=== PATIENT | female | born 1945 ===

== ENCOUNTER → 2019-04-12 | Outpatient (CLI) | payer OTHER ==
[~2019-04-12] MED LIST: AUGMENTIN1 TAB.SR2 PO; AVAPRO75 MG PO; CRESTOR5 MG PO; XOPENEX1.25 MG/0. IH
== END | disposition home or self-care (01) ==
LOC: NUCLEAR 09:00
DX: I11.9 Hypertensive heart disease without heart failure (principal)

== ENCOUNTER 2021-07-18 16:18 | Inpatient (IN) | payer OTHER ==
[~2021-07-18] VITALS: Ht 152.4 cm; Wt 65.8 kg
[2021-07-18] MEDS ORDERED: SYNTHROID100 MCG (17:15)
[2021-07-18] MEDS ORDERED: PROTONIX (17:16)
[2021-07-18] MEDS ORDERED: [UNRECOGNIZED DRUG - OTHER] (17:17)
[2021-07-22] MEDS ORDERED: DSS100 MG (08:13)
[2021-07-22] MEDS ORDERED: ROSUVASTATIN CA10 MG (08:13)
[2021-07-22] MEDS ORDERED: IRBESARTAN150 MG (08:13)
[2021-07-22] MEDS ORDERED: PANTOPRAZOLE SO40 MG (08:13)
[2021-07-30] MEDS ORDERED: SYNTHROID100 MCG PO (12:58)
[2021-07-30] MEDS ORDERED: Neurin-Sl Tablet Sl SL (12:58)
[2021-07-30] MEDS ORDERED: PANTOPRAZOLE SO40 MG PO (12:58)
[2021-07-30] MEDS ORDERED: POM (MEDICAMENTO EN PO (12:58)
== END 2021-07-30 20:05 | disposition home health service (06) | DRG 815 ==
LOC: ER 16:18 → MEDJ 07-19 12:24 → SURH 07-26 15:50
PROVIDERS: ADMIT Internal Medicine; ATTEND Internal Medicine
PROC: 4A12X4Z Monitoring of Cardiac Electrical Activity, External Approach (ICD-10-PCS; 2021-07-19)
PROC: 02H633Z Insertion of Infusion Device into Right Atrium, Percutaneous Approach (ICD-10-PCS; 2021-07-20)
PROC: 30233N1 Transfusion of Nonautologous Red Blood Cells into Peripheral Vein, Percutaneous Approach (ICD-10-PCS; principal; 2021-07-23)
DX: D75.838 Other thrombocytosis (principal); J98.11 Atelectasis; N39.0 Urinary tract infection, site not specified; L27.0 Generalized skin eruption due to drugs and medicaments taken internally; D50.8 Other iron deficiency anemias

== ENCOUNTER 2021-10-22 10:08 | Outpatient (CLI) | payer OTHER ==
[~2021-10-22 10:08] MED LIST changes: +DSS100 MG; +IRBESARTAN150 MG; +Neurin-Sl Tablet Sl SL; +PANTOPRAZOLE SO40 MG; +PANTOPRAZOLE SO40 MG PO; +POM (MEDICAMENTO EN PO; +PROTONIX; +ROSUVASTATIN CA10 MG; +SYNTHROID100 MCG; +SYNTHROID100 MCG PO; +[UNRECOGNIZED DRUG - OTHER]
== END 2021-10-22 10:16 | disposition home or self-care (01) ==
LOC: LAB 10:08
PROVIDERS: ATTEND Internal Medicine Hematology & Oncology
DX: D50.8 Other iron deficiency anemias (principal); R79.89 Other specified abnormal findings of blood chemistry; I10 Essential (primary) hypertension; R74.02 Elevation of levels of lactic acid dehydrogenase [LDH]; K76.89 Other specified diseases of liver; R70.0 Elevated erythrocyte sedimentation rate; D51.1 Vitamin B12 deficiency anemia due to selective vitamin B12 malabsorption with proteinuria; D51.0 Vitamin B12 deficiency anemia due to intrinsic factor deficiency; E03.8 Other specified hypothyroidism; E06.3 Autoimmune thyroiditis; R97.0 Elevated carcinoembryonic antigen [CEA]; R97.8 Other abnormal tumor markers; D47.3 Essential (hemorrhagic) thrombocythemia

== ENCOUNTER 2022-03-06 10:30 | Outpatient (CLI) | payer OTHER | END 2022-03-06 10:34 | disposition home or self-care (01) | LOC: LAB 10:30 | PROVIDERS: ATTEND Internal Medicine Hematology & Oncology | DX: D50.8 Other iron deficiency anemias (principal); R79.9 Abnormal finding of blood chemistry, unspecified; I10 Essential (primary) hypertension; R74.02 Elevation of levels of lactic acid dehydrogenase [LDH]; K76.89 Other specified diseases of liver; D51.8 Other vitamin B12 deficiency anemias; R97.0 Elevated carcinoembryonic antigen [CEA]; R97.8 Other abnormal tumor markers; D47.3 Essential (hemorrhagic) thrombocythemia ==

== ENCOUNTER → 2022-11-18 11:30 | Outpatient (CLI) | payer OTHER | END | disposition home or self-care (01) | LOC: LAB 11:30 | PROVIDERS: ATTEND Internal Medicine Hematology & Oncology | DX: D50.8 Other iron deficiency anemias (principal); I10 Essential (primary) hypertension; R74.02 Elevation of levels of lactic acid dehydrogenase [LDH]; D51.8 Other vitamin B12 deficiency anemias; R97.0 Elevated carcinoembryonic antigen [CEA]; R97.8 Other abnormal tumor markers; C50.919 Malignant neoplasm of unspecified site of unspecified female breast ==